=== PATIENT | male | born 1985 | race Caucasian/White ===

== ENCOUNTER 2022-02-27 11:24 | Emergency (ER) | payer OTHER ==
[~2022-02-27] VITALS: Ht 188 cm; Wt 107.5 kg
[2022-02-27 12:23] VITALS: BP 102/73
--- NOTE | 2022-02-27 13:33 | NUR ---
Patient left without being seen by ER Physician
== END 2022-02-27 13:34 | disposition left against medical advice (07) ==
LOC: ER 11:29
DX: Z53.21 Procedure and treatment not carried out due to patient leaving prior to being seen by health care provider (principal)